=== PATIENT | male | born 1950 | race Caucasian/White ===

== ENCOUNTER → 2020-08-06 | Outpatient (CLI) | payer MEDICARE ==
[~2020-08-06] MED LIST: ATOR20TA58 PO; DORZ10DR7 OP; ENAL20TA10 PO; ESCITALOPRAM OX20 MG PO; LATA2.5D2 OP; OMEP20CA16 PO; REGADENOSON 0.4 MG/5 ML DISP.SYRIN. IV ONE; RIVA20TA2 PO; one a day vitamin
--- NOTE | 2020-08-06 12:53 | RAD ---
MR#: [id number] Date of Study: 08/06/2020 Ordering Physician: SANJAY BEDOLLA Referring Physician: ALBERT WELLER Tech: RT Alejandra Eid) (N) APPROVED REPORT Test Type: Pharmacological Stress Nurse/Tech: BMcFadden Test Indications: new onset of afib Cardiac History: Hypertension Medications: See Electronic Medical Record Medical History: See Electronic Medical Record Resting ECG: afib Resting Heart Rate: 71 bpm Resting Blood Pressure: 109/69mmHg Nurse/Tech Notes CTA Consent: The procedure was explained to the patient in lay terms. Informed consent was witnessed. Luis Felipe eout was entered into [facility]. History and Stress Test performed by RT Parvez (R) (N) Pharm. Details Pharmacologic stress testing was performed using 0.4mg per 5ml of regadenoson given intravenously ove r 7-10 seconds. Stress Symptoms No chest pain or symptoms. POST EXERCISE Max HR: 122 bpm Max Blood Pressure: 120/76mmHg Blood Pressure response to exercise: Normal blood pressure response during stress. Chest Pain: No. Arrhythmia: No. ST Change: No. INTERPRETATION Stress EKG Conclusion: No acute changes were noted. Imaging Protocol IMAGE PROTOCOL: Rest Tc-99m/stress Tc-99m 1 day Rest: Stress: Viability: Radiopharm.Tc99m JwhwdpwooSj96j Sestamibi Dose10.8mCi 33mCi Duration 13min. 13min. Img Date 08/06/2020 08/06/2020 Inj-Img Imhh60cwq. 60min. Rest Admin Site:IV - Left AntecubitalAdministrator:RT Stanton ([place])(N) Stress Admin Site: IV - Left AntecubitalAdministrator: RT Alejandra Hannon)(N) STRESS DATA End Diast. Vol.91.0mlLVEDV index BSA41.0ml End Syst. Vol.30.0mlLVESV index BSA13.0ml Myocardial Smdn514.0gEject. Bqphokvn26.0% Stress Scores Regional WT1.00Summed WT11.00 Regional WM0.00Summed WM2.00 The rest and stress images show normal perfusion, normal contraction and thickening. LV Perf. Quant 17 Seg. SSS0.00 17 Seg. SRS0.00 17 Seg. SDS0.00 Stress Defect Extent (% LAD)0.00Rest Defect Extent (% LAD)0.00Rev. Defect Extent (% LAD)0.00 Stress Defect Extent (% LCX) 0.00Rest Defect Extent (% LCX)0.00Rev. Defect Extent (% LCX)0.00 Stress Defect Extent (% RCA)0.00Rest Defect Extent (% RCA)0.00Rev. Defect Extent (% RCA)0.00 Stress Defect Extent (% DEBORA)0.00Rest Defect Extent (% DEBORA)0.00Rev. Defect Extent (% DEBORA)0.00 Other Information Quality:Good Risk Assessment: Low Risk Conclusion 1. No evidence of EKG changes with stress testing. 2. Normal perfusion at stress/rest. 3. Low risk study. 4. EF > 60%. Signed by : Jacob Liu, Electronically Approved : 08/06/2020 12:52:49
--- NOTE | 2020-08-06 18:34 | CARD ---
MR#: [id number] Date of Study: 08/06/2020 Ordering Physician: SANJAY BEDOLLA, Referring Physician: SANJAY BEDOLLA, Tech: Yeni López APPROVED REPORT EXAM: Two-dimensional and M-mode echocardiogram with Doppler and color Doppler. Other Information Quality : FairHR: 80bpm Technically limited study due to body habitus. INDICATION Atrial Fibrillation RISK FACTORS Hypertension Hyperlipidemia 2D DIMENSIONS RVDd4.4 (2.9-3.5cm)Left Atrium(2D)4.5 (1.6-4.0cm) IVSd1.1 (0.7-1.1cm)Aortic Root(2D)3.5 (2.0-3.7cm) LVDd4.7 (3.9-5.9cm)LVOT Diameter2.2 (1.8-2.4cm) PWd1.3 (0.7-1.1cm)LVDs3.3 (2.5-4.0cm) FS (%) 30.7 %SV59.4 ml LVEF(%)58.2 (>50%) Aortic Valve AoV Peak Edwin.87.6cm/sAoV VTI15.9cm AO Peak GR.3.1mmHgLVOT Peak Edwin.57.2cm/s LVOT VTI 11.49cmAO Mean GR.2mmHg TURNER (VMAX)1.18wo2WKU (VTI)2.78cm2 Mitral Valve MV E Pfgpwhsx95.4cm/sMV DECEL GCCM694uh MV A Mlurjkzy42.3cm/sMV ZUZ68jp E/A Ratio3.0MVA (PHT)3.94cm2 TDI E/Lateral E'7.8E/Medial E'7.1 Pulmonary Valve PV Peak Cagirxej16.0cm/sPV Peak Grad.2mmHg Tricuspid Valve TR P. Lkoqjvav086fi/sRAP LZTEXYCO6ahKv TR Peak Gr.86ugOqRRLA56pcJa LEFT VENTRICLE The left ventricle is normal size. There is mild to moderate concentric left ventricular hypertrophy. The left ventricular systolic function is normal and the ejection fraction is within normal range. E F 55% There is normal LV segmental wall motion. Transmitral Doppler flow pattern is Grade II-pseudono rmal filling dynamics. RIGHT VENTRICLE The right ventricle is mildly dilated. There is normal right ventricular wall thickness. The right ve ntricular systolic function is normal. ATRIA The left atrium is mildly dilated. The right atrium is mildly dilated. The interatrial septum is inta ct with no evidence for an atrial septal defect or patent foramen ovale as noted on 2-D or Doppler im aging. AORTIC VALVE The aortic valve is thickened but opens well. Doppler and Color Flow revealed no significant aortic r egurgitation. There is no significant aortic valvular stenosis. Calculated aortic valve area is 2.97 cm2 with maximum pressure gradient of 4 mmHg and mean pressure gradient of 2 mmHg. MITRAL VALVE The mitral valve is normal in structure and function. There is no evidence of mitral valve prolapse. There is no mitral valve stenosis. Doppler and Color-flow revealed trace mitral regurgitation. TRICUSPID VALVE The tricuspid valve is normal in structure and function. Doppler and Color Flow revealed trace tricus pid regurgitation with an estimated PAP of 26 mmHg. There is no tricuspid valve stenosis. PULMONIC VALVE The pulmonic valve is not well visualized. Doppler and Color Flow revealed no pulmonic valvular regur gitation. There is no pulmonic valvular stenosis. GREAT VESSELS The aortic root mildly dilated. The ascending aorta is mildly dilated at 4.0 cm. The IVC was not visu alized. PERICARDIAL EFFUSION There is no evidence of significant pericardial effusion. Critical Notification Critical Value: No <Conclusion> The left ventricular systolic function is normal and the ejection fraction is within normal range. EF 55% There is normal LV segmental wall motion. The right ventricle is mildly dilated. The aortic root mildly dilated. The ascending aorta is mildly dilated at 4.0 cm. Signed by : Jacob Liu, Electronically Approved : 08/06/2020 18:33:41
== END ==
LOC: NM 08:14
PROVIDERS: ATTEND Internal Medicine Cardiovascular Disease
DX: I11.9 Hypertensive heart disease without heart failure (principal); I48.91 Unspecified atrial fibrillation
CPT/HCPCS: 78452; 93017; 93306; A9500; J2785

== ENCOUNTER → 2020-08-27 | Outpatient (CLI) | payer MEDICARE ==
[~2020-08-27] MED LIST changes: -REGADENOSON 0.4 MG/5 ML DISP.SYRIN. IV ONE
== END ==
LOC: LAB 15:25
PROVIDERS: ATTEND Internal Medicine Cardiovascular Disease
DX: Z01.812 Encounter for preprocedural laboratory examination (principal); I48.91 Unspecified atrial fibrillation; Z20.828 Contact with and (suspected) exposure to other viral communicable diseases
CPT/HCPCS: U0003

== ENCOUNTER 2020-08-31 08:18 | Day surgery (SDC) | payer MEDICARE ==
[~2020-08-31 08:18] MED LIST changes: +IV RINGERS,LACTATED 1000ML 1,000 ML IV SCH
--- NOTE | 2020-08-31 09:01 | EKG ---
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
[2020-08-31 09:06] LABS: HEMATOCRIT 44.1 % (39.0-53.0); HEMOGLOBIN 14.9 g/dL (13.0-17.5); RED BLOOD COUNT 4.73 x10^6/uL (4.30-5.70); RED CELL DISTRIBUTION WIDTH 13.7 % (11.5-14.5); WHITE BLOOD COUNT 7.3 x10^3/uL (4.0-11.0)
[2020-08-31 09:13] LABS: CALCIUM 8.9 mg/dL (8.5-10.1); CREATININE 0.8 mg/dL (0.7-1.3); POTASSIUM 3.7 mmol/L (3.5-5.1)
[2020-08-31 09:30] LABS: PROTHROMBIN TIME PATIENT 17.3 SEC (11.7-14.0)
[2020-08-31] MEDS ORDERED: LIDOCAINE 2% PF 5 ML VIAL. ONE (09:58)
[2020-08-31] MEDS ORDERED: PROPOFOL 10 MG/ML (20ML) VIAL. IV ONE (09:58)
--- NOTE | 2020-08-31 10:31 | PDOC4 ---
Procedure Note Procedure: External cardioversion Indications: Atrial fibrillation Complications: None Procedural Details: An informed consent was obtained from patient. After anesthesiology team administered intravenous propofol for deep sedation, patient was given 200 J of synchronized biphasic DC current shock therapy with successful conversion of patient rhythm from atrial fibrillation to sinus rhythm. Patient was hemodynamically stable without any neurological deficits at the end of procedure. Conclusions: Successful external cardioversion of atrial fibrillation to sinus rhythm. SANJAY BEDOLLA MD Aug 31, 2020 10:31
--- NOTE | 2020-08-31 10:54 | EKG ---
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
[2020-08-31 11:10] VITALS: BP 114/74
== END 2020-08-31 11:30 | disposition home or self-care (01) ==
LOC: SURG 08:18
PROVIDERS: ATTEND Internal Medicine Cardiovascular Disease
DX: I48.91 Unspecified atrial fibrillation (principal); E78.00 Pure hypercholesterolemia, unspecified; I10 Essential (primary) hypertension; M19.90 Unspecified osteoarthritis, unspecified site; F41.9 Anxiety disorder, unspecified; Z87.891 Personal history of nicotine dependence; Z79.899 Other long term (current) drug therapy; Z98.890 Other specified postprocedural states
CPT/HCPCS: 36415; 80048; 85027; 85610; 92960; 93005; J2704

== ENCOUNTER → 2020-12-21 | Outpatient (CLI) | payer MEDICARE ==
[~2020-12-21] MED LIST changes: +DRON400T6 PO; +GABA-689 PO; -IV RINGERS,LACTATED 1000ML 1,000 ML IV SCH
== END ==
LOC: LAB 09:49
PROVIDERS: ATTEND Internal Medicine Cardiovascular Disease
DX: Z01.812 Encounter for preprocedural laboratory examination (principal); I48.91 Unspecified atrial fibrillation; Z20.822 Contact with and (suspected) exposure to COVID-19
CPT/HCPCS: U0003; U0005

== ENCOUNTER 2020-12-24 10:27 | Day surgery (SDC) | payer MEDICARE ==
[~2020-12-24 10:27] MED LIST changes: +DRON400T PO; -DRON400T6 PO; +IV RINGERS,LACTATED 1000ML 1,000 ML IV SCH
--- NOTE | 2020-12-24 11:08 | EKG ---
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
[2020-12-24] MEDS ORDERED: PROPOFOL 10 MG/ML (20ML) VIAL. IV ONE (11:33)
[2020-12-24] MEDS ORDERED: LIDOCAINE 2% PF 5 ML VIAL. ONE (11:33)
[2020-12-24 11:55] LABS: HEMATOCRIT 44.3 % (39.0-53.0); HEMOGLOBIN 14.9 g/dL (13.0-17.5)
[2020-12-24 12:03] LABS: CALCIUM 8.6 mg/dL (8.5-10.1); CREATININE 0.9 mg/dL (0.7-1.3); GFR 82.9; POTASSIUM 4.1 mmol/L (3.5-5.1)
[2020-12-24 12:08] LABS: PROTHROMBIN TIME PATIENT 17.5 SEC (11.7-14.0)
[2020-12-24 12:15] VITALS: BP 106/67
--- NOTE | 2020-12-24 12:17 | EKG ---
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
--- NOTE | 2020-12-24 12:33 | PDOC4 ---
Procedure Note Procedure: External cardioversion Indications: Atrial fibrillation Complications: None Procedural Details: And informed consent was obtained from patient. Anesthesiology team administered intravenous propofol for deep sedation. He was then given 200 J of synchronized biphasic DC current with successful conversion of patient rhythm from atrial fibrillation to sinus rhythm. He was hemodynamically stable without any neurological deficits at the end of procedure. He tolerated the procedure well. Conclusions: Successful external cardioversion of atrial fibrillation to sinus rhythm SANJAY BEDOLLA MD Dec 24, 2020 12:33
== END 2020-12-24 12:46 | disposition home or self-care (01) ==
LOC: SURG 10:27
PROVIDERS: ATTEND Internal Medicine Cardiovascular Disease
DX: I48.91 Unspecified atrial fibrillation (principal); R94.31 Abnormal electrocardiogram [ECG] [EKG]; E78.00 Pure hypercholesterolemia, unspecified; I10 Essential (primary) hypertension; K21.9 Gastro-esophageal reflux disease without esophagitis; M19.90 Unspecified osteoarthritis, unspecified site; F41.9 Anxiety disorder, unspecified; Z87.891 Personal history of nicotine dependence; Z79.899 Other long term (current) drug therapy; Z98.890 Other specified postprocedural states; Z72.89 Other problems related to lifestyle
CPT/HCPCS: 36415; 80048; 85014; 85018; 85610; 85730; 92960; 93005; J2704

== ENCOUNTER → 2021-09-07 | Outpatient (CLI) | payer MEDICARE ==
[~2021-09-07] MED LIST changes: -DRON400T PO; +DRON400T6 PO; -IV RINGERS,LACTATED 1000ML 1,000 ML IV SCH
--- NOTE | 2021-09-08 16:55 | CARD ---
MR#: [id number] Date of Study: 09/07/2021 Ordering Physician: SANJAY QUESADA, Referring Physician: SANJAY QUESADA, Tech: Yeni López [facility] APPROVED REPORT EXAM: Two-dimensional and M-mode echocardiogram with Doppler and color Doppler. Other Information Quality : AverageHR: 82bpm INDICATION Atrial Fibrillation RISK FACTORS Hypertension Hyperlipidemia 2D DIMENSIONS Left Atrium(2D)2.5 (1.6-4.0cm)IVSd1.0 (0.7-1.1cm) Aortic Root(2D)3.9 (2.0-3.7cm)LVDd5.4 (3.9-5.9cm) LVOT Diameter2.1 (1.8-2.4cm)PWd1.0 (0.7-1.1cm) LVDs2.9 (2.5-4.0cm)FS (%) 46.3 % SV110.3 mlLVEF(%)77.2 (>50%) Aortic Valve AoV Peak Edwin.111.5cm/sAoV VTI22.8cm AO Peak GR.5.0mmHgLVOT Peak Edwin.103.7cm/s AO Mean GR.3mmHgAVA (VMAX)3.21cm2 Mitral Valve MV E Vwkgbuon15.0cm/sMV E Peak Gr.3mmHg MV DECEL MOON356svLJ A Fpdpaxot71.1cm/s MV E Mean Gr.1mmHgE/A Ratio0.5 Pulmonary Valve PV Peak Rqvnckfw37.1cm/s Tricuspid Valve TR P. Cchcmlvv434sg/sRAP AOGWKUIY2ymVb TR Peak Gr.33kjRoUXRC65frTq Pulmonary Vein S1 Vmoqxgug96.4cm/sD2 Czywhonb38.7cm/s PVa iolbdhlz032dzmp LEFT VENTRICLE The left ventricle is normal size. There is normal left ventricular wall thickness. The left ventricu lar systolic function is normal. The Ejection Fraction is 60-65%. There is normal LV segmental wall m otion. Transmitral Doppler flow pattern is Grade I-abnormal relaxation pattern. RIGHT VENTRICLE The right ventricle is borderline dilated. There is normal right ventricular wall thickness. The righ t ventricular systolic function is normal. ATRIA The left atrium size is normal. The right atrium size is normal. The interatrial septum is intact wit h no evidence for an atrial septal defect or patent foramen ovale as noted on 2-D or Doppler imaging. AORTIC VALVE The aortic valve is normal in structure and function. Doppler and Color Flow revealed no significant aortic regurgitation. There is no significant aortic valvular stenosis. Calculated aortic valve area is 3.2 cm2 with maximum pressure gradient of 5 mmHg and mean pressure gradient of 3 mmHg. MITRAL VALVE The mitral valve is normal in structure and function. There is no evidence of mitral valve prolapse. There is no mitral valve stenosis. Doppler and Color Flow revealed no mitral valve regurgitation note d. TRICUSPID VALVE The tricuspid valve is normal in structure and function. Doppler and Color Flow revealed trace tricus pid regurgitation with an estimated PAP of 28 mmHg. There is no tricuspid valve stenosis. PULMONIC VALVE The pulmonary valve is normal in structure and function. Doppler and Color Flow revealed trace pulmon ic valvular regurgitation. GREAT VESSELS The aortic root is mildly enlarged measuring 3.9 cm. The IVC was not visualized. PERICARDIAL EFFUSION There is no evidence of significant pericardial effusion. Critical Notification Critical Value: No <Conclusion> The left ventricular systolic function is normal. The Ejection Fraction is 60-65%. There is normal LV segmental wall motion. Transmitral Doppler flow pattern is Grade I-abnormal relaxation pattern. Trace tricuspid regurgitation with an estimated PAP of 28 mmHg. There is no evidence of significant pericardial effusion. Signed by : Sanjay Quesada, Electronically Approved : 09/08/2021 16:55:28
== END ==
LOC: ECHO 15:00
PROVIDERS: ATTEND Internal Medicine Cardiovascular Disease
DX: I48.91 Unspecified atrial fibrillation (principal)
CPT/HCPCS: 93306